=== PATIENT | male | born 1960 | race Caucasian/White ===

== ENCOUNTER 2019-01-19 12:23 | Inpatient (IN) | payer OTHER ==
[~2019-01-19] VITALS: Ht 180.3 cm; Wt 104.2 kg
--- NOTE | 2019-01-19 13:05 | NUR ---
REPORT FROM TASK RN. PER REPORT PT WITH CP X 1 WEEK, SENT HERE [facility] [place] [facility] FOR HAVING MILDLY ELEVATED TROPONIN. PT TO BE ADMITTED FOR CARDIAC WORKUP. PT CURRENTLY DENIES CP
[2019-01-19] MEDS ORDERED: NITROGLYCERIN OINT 2%, 1GM TP ONE ×2 (13:17→13:30)
--- NOTE | 2019-01-19 13:24 | NUR ---
PT MEDICATED PER MAR, PT TO BE ADMITTED, AWAITING BED PLACEMENT
[2019-01-19] MEDS ORDERED: PLEASE ENTER ALLERGIES MC SCH (13:30)
[2019-01-19 13:31] LABS: TROPONIN I 0.771 ng/mL (0.000-0.045)
[2019-01-19] MEDS ORDERED: IBUP200C8 PO (13:39)
[2019-01-19] MEDS ORDERED: AMLO-150 PO (13:39)
[2019-01-19] MEDS ORDERED: ACETAMINOPHEN 325 MG TABLET PO PRN (14:00)
[2019-01-19] MEDS ORDERED: morphine SULFATE 10 MG/ML, 1ML IV PRN (14:00)
[2019-01-19] MEDS ORDERED: morphine SULFATE 10 MG/ML, 1ML IVPush PRN (14:00)
[2019-01-19] MEDS ORDERED: NITROGLYCERIN 0.4 MG/SPRAY SL PRN (14:00)
[2019-01-19] MEDS ORDERED: NITROGLYCERIN 0.4 MG BOTTLE (25 TABS) SL PRN (14:00)
[2019-01-19 14:24] LABS: CHOL/HDL RATIO 7.1; LDL/HDL RATIO 5.5 (0.5-3.0)
--- NOTE | 2019-01-19 14:31 | NUR ---
REPORT TO JIM HOUSTON
[2019-01-19 15:33] VITALS: BP 163/90
[2019-01-19] MEDS: LISINOPRIL 20 MG TABLET PO SCH (16:32)
[2019-01-19 19:47] VITALS: BP 119/76
[2019-01-19] MEDS ORDERED: HEPARIN 5,000 UNITS/ML, 1ML IV ONE ×2 (21:00→22:00)
[2019-01-19] MEDS ORDERED: HEPARIN 5,000 UNITS/ML, 1ML IV PRN ×2 (21:00→22:00)
[2019-01-19] MEDS ORDERED: HEPARIN 25,000 UNITS/500ML PMX 500 ML IV PRN ×2 (21:00→22:00)
[2019-01-19] MEDS: ATORVASTATIN 80 MG TABLET PO SCH (22:05)
[2019-01-19] MEDS: SODIUM CHLORIDE FLUSH 10ML SYR IVF SCH (22:06)
[2019-01-19] MEDS ORDERED: ENOXAPARIN 40 MG/0.4 ML SQ SCH (23:00)
[2019-01-20 01:28] VITALS: BP 113/71
[2019-01-20] MEDS ORDERED: ASPIRIN 325 MG TABLET EC PO SCH (06:00)
[2019-01-20 08:49] VITALS: BP 111/71
[2019-01-20] MEDS: SODIUM CHLORIDE FLUSH 10ML SYR IVF SCH ×2 (09:02→20:54)
[2019-01-20] MEDS: METOPROLOL SUCCINATE 25 MG TAB.ER.24H PO SCH (09:02)
[2019-01-20] MEDS: LISINOPRIL 20 MG TABLET PO SCH (09:02)
[2019-01-20] MEDS ORDERED: SODIUM CHLORIDE 0.9% 1,000 ML IV SCH (11:00)
[2019-01-20 14:01] VITALS: BP 111/76
[2019-01-20] MEDS ORDERED: MIDAZOLAM 1 MG/ML, 5ML ONE (14:55)
[2019-01-20] MEDS ORDERED: FENTANYL PF 100 MCG/2ML ONE ×3 (14:55→16:31)
[2019-01-20] MEDS ORDERED: TICAGRELOR 90 MG TABLET ONE (14:56)
[2019-01-20] MEDS ORDERED: VERAPAMIL 2.5 MG/ML, 2ML ONE (14:56)
[2019-01-20] MEDS ORDERED: HEPARIN 1,000 UNITS/ML, 10ML ONE (14:56)
[2019-01-20] MEDS ORDERED: BIVALIRUDIN 250 MG ONE ×2 (14:56→16:16)
[2019-01-20] MEDS ORDERED: LIDOCAINE 2%, 20ML ONE (14:56)
[2019-01-20] MEDS ORDERED: MIDAZOLAM 1 MG/ML, 2ML ONE ×2 (15:51→16:31)
[2019-01-20] MEDS ORDERED: hydrALAzine 20 MG/ML, 1ML ONE (17:09)
[2019-01-20 19:46] VITALS: BP 162/92
[2019-01-20] MEDS: TICAGRELOR 90 MG TABLET PO SCH (20:53)
[2019-01-20] MEDS: ATORVASTATIN 80 MG TABLET PO SCH (20:53)
[2019-01-20] MEDS: SODIUM CHLORIDE 0.9% 1,000 ML IV SCH (20:57)
[2019-01-21 01:13] VITALS: BP 160/71
[2019-01-21] MEDS: SODIUM CHLORIDE 0.9% 1,000 ML IV SCH (05:00)
[2019-01-21 05:16] LABS: ALANINE AMINOTRANSFERASE 32 U/L (12-78); ALBUMIN 3.7 g/dL (3.4-5.0); ANION GAP 6 mmol/L (5-15); CALCIUM 8.8 mg/dL (8.5-10.1); CHLORIDE 108 mmol/L (98-107)
[2019-01-21 05:18] LABS: ALKALINE PHOSPHATASE 52 U/L (45-117); BASOPHILS # (AUTO) 0.02 x10^3/uL (0-0.1); BASOPHILS % (AUTO) 0 % (0-1); BILIRUBIN,TOTAL 1.4 mg/dL (0.2-1.0); CREATININE 1.01 mg/dL (0.7-1.3); EOSINOPHILS # (AUTO) 0.04 x10^3/uL (0-0.4); EOSINOPHILS % (AUTO) 1 % (1-7); LYMPHOCYTES # (AUTO) 1.03 x10^3/uL (1-3.4); LYMPHOCYTES % (AUTO) 15 % (22-44); MD NO; MEAN CORPUSCULAR HEMOGLOBIN 30.7 pg (27.5-34.5); MEAN CORPUSCULAR HGB CONC 33.6 g/dL (33.2-36.2); MEAN CORPUSCULAR VOLUME 91.4 fL (81-97); MEAN PLATELET VOLUME 8.2 fL (7.4-10.4); MONOCYTES # (AUTO) 0.86 x10^3/uL (0.2-0.8); MONOCYTES % (AUTO) 13 % (2-9); NEUTROPHILS # (AUTO) 4.88 x10^3/uL (1.8-6.8); NEUTROPHILS % (AUTO) 72 % (42-75); PLATELET COUNT 208 x10^3/uL (130-400); RED BLOOD COUNT 4.98 x10^6/uL (4.38-5.82); RED CELL DISTRIBUTION WIDTH 14.2 % (9.4-14.8); TOTAL PROTEIN 6.9 g/dL (6.4-8.2)
[2019-01-21] MEDS: METOPROLOL SUCCINATE 25 MG TAB.ER.24H PO SCH ×3 (05:48→21:24)
[2019-01-21 06:55] VITALS: BP 149/82
[2019-01-21] MEDS: LISINOPRIL 20 MG TABLET PO SCH (08:30)
[2019-01-21] MEDS: ASPIRIN 81 MG TABLET EC PO SCH (08:30)
[2019-01-21] MEDS: TICAGRELOR 90 MG TABLET PO SCH ×2 (08:30→21:25)
[2019-01-21] MEDS: SODIUM CHLORIDE FLUSH 10ML SYR IVF SCH ×2 (08:31→21:00)
[2019-01-21 11:14] VITALS: BP 125/81
[2019-01-21 13:30] VITALS: BP 110/66
[2019-01-21 19:40] VITALS: BP 129/77
[2019-01-21] MEDS: ATORVASTATIN 80 MG TABLET PO SCH (21:24)
[2019-01-22 03:51] VITALS: BP 130/79
[2019-01-22 07:57] VITALS: BP 134/74
[2019-01-22] MEDS: ASPIRIN 81 MG TABLET EC PO SCH (08:07)
[2019-01-22] MEDS: TICAGRELOR 90 MG TABLET PO SCH (08:07)
[2019-01-22] MEDS: METOPROLOL SUCCINATE 25 MG TAB.ER.24H PO SCH (08:07)
[2019-01-22] MEDS: LISINOPRIL 20 MG TABLET PO SCH (08:07)
[2019-01-22] MEDS: SODIUM CHLORIDE FLUSH 10ML SYR IVF SCH (08:08)
[2019-01-22] MEDS ORDERED: TICA90TA PO (09:14)
[2019-01-22] MEDS ORDERED: LISI-170 PO (09:14)
[2019-01-22] MEDS ORDERED: METO-93 PO (09:14)
[2019-01-22] MEDS ORDERED: ATOR-2 PO (09:14)
[2019-01-22] MEDS ORDERED: ASPI81TA45 PO (09:14)
[2019-01-22] MEDS ORDERED: NITR0.4T28 SL (09:14)
== END 2019-01-22 11:05 | disposition home or self-care (01) | DRG 247 ==
LOC: SUATTDRO 13:37 → ED 13:56 → EDIP 14:00 → 5SO 15:00 → DCLOUNGE 01-22 10:43
PROVIDERS: ADMIT Hospitalist; ATTEND Family Medicine
PROC: 027036Z Dilation of Coronary Artery, One Artery with Three Drug-eluting Intraluminal Devices, Percutaneous Approach (ICD-10-PCS; principal; 2019-01-21)
PROC: 4A023N7 Measurement of Cardiac Sampling and Pressure, Left Heart, Percutaneous Approach (ICD-10-PCS; 2019-01-21)
PROC: B2111ZZ Fluoroscopy of Multiple Coronary Arteries using Low Osmolar Contrast (ICD-10-PCS; 2019-01-21)
PROC: B2151ZZ Fluoroscopy of Left Heart using Low Osmolar Contrast (ICD-10-PCS; 2019-01-21)
DX: I21.4 Non-ST elevation (NSTEMI) myocardial infarction (principal); E66.9 Obesity, unspecified; E78.5 Hyperlipidemia, unspecified; I25.10 Atherosclerotic heart disease of native coronary artery without angina pectoris; I10 Essential (primary) hypertension; Z82.0 Family history of epilepsy and other diseases of the nervous system; Z95.5 Presence of coronary angioplasty implant and graft; Z68.32 Body mass index [BMI] 32.0-32.9, adult; F17.210 Nicotine dependence, cigarettes, uncomplicated
CPT/HCPCS: 36415; 93458; C9600; J3490; 80053; 80061; 83735; 84100; 84484; 85025; 85520; 93005; 93306; 99156; 99157; C1760; C1769; C1894; G0378; J0583; J1644; J2250; J3010; C1725; C1874; C1887; J0360; Q9967